=== PATIENT | female | born 1995 | race Caucasian/White ===

== ENCOUNTER 2020-02-03 23:22 | Emergency (ER) | payer OTHER ==
[~2020-02-03] VITALS: Ht 175.3 cm; Wt 111.4 kg
[2020-02-03 23:26] VITALS: TEMP 97.8
[2020-02-04 00:25] LABS: BASO # 0.1 (0.0-0.2); BASO % 0.7 % (0.0-2.0); EOS # 0.1 (0.0-0.7); EOS % 1.9 % (0-4.0); GRAN # 4.3 (1.4-6.5); GRAN % 61.3 % (42.2-75.2); HEMATOCRIT 43.4 % (37.0-47.0); HEMOGLOBIN 14.2 g/dl (12.5-16.0); LYMPH # 1.9 (1.2-3.4); LYMPH % 27.1 % (20.0-51.0); MEAN CELL VOLUME 84 fl (80.0-100.0); MEAN CORPUSCULAR HEMOGLOBIN 28 pg (27.0-31.0); MEAN CORPUSCULAR HGB CONC 33 g/dl (33.0-37.0); MEAN PLATELET VOLUME 10.6 fl (7.4-10.4); MONO # 0.6 (0.1-0.6); MONO % 8.9 % (1.7-9.3); PLATELET COUNT 329 K/mm3 (130-400); RED BLOOD COUNT 5.16 M/mm3 (4.10-5.30); REDCELL DISTRIBUTION WIDTH-CV 13.5 % (11.5-14.5)
[2020-02-04 01:15] LABS: ALBUMIN 4.4 gm/dL (3.5-5.0); BILIRUBIN,TOTAL 0.3 mg/dL (0.0-1.0); C-REACTIVE PROTEIN 4.5 mg/dL (0.0-0.9); CALCIUM 9.1 mg/dL (8.4-10.2); CREATININE, serum 0.64 (0.52-1.25); POTASSIUM 3.5 mmol/L (3.4-5.0); TOTAL PROTEIN 8.1 gm/dL (6.4-8.2)
[2020-02-04 01:22] LABS: COLLECTION METHOD CLEAN CATCH
[2020-02-04 01:37] LABS: MUCOUS Present /lpf; PH 6 (5-8); URINE APPEARANCE Hazy; URINE BACTERIA None Seen /hpf; URINE BILIRUBIN Negative (NEGATIVE); URINE BLOOD 3+ (NEGATIVE); URINE COLOR Yellow; URINE GLUCOSE Negative (NEGATIVE); URINE KETONE Trace (NEGATIVE); URINE LEUKOCYTE ESTERASE Negative (NEGATIVE); URINE NITRATE Negative (NEGATIVE); URINE PROTEIN(semi-quant) Negative (NEGATIVE); URINE UROBILINOGEN Negative (NEGATIVE)
[2020-02-04] MEDS ORDERED: CARAFATE S1 GM/10 ML PO (02:41)
[2020-02-04 03:12] VITALS: BP 126/70; PULSE 77
== END 2020-02-04 03:13 | disposition home or self-care (01) ==
LOC: COL.ER 23:22
PROVIDERS: Physician Assistant
DX: K20.8 Other esophagitis (principal)
CPT/HCPCS: J2060; J2405; J7030; Q9967

== ENCOUNTER 2020-02-14 06:00 | Day surgery (SDC) | payer OTHER ==
[~2020-02-14] VITALS: Ht 175.3 cm; Wt 110.0 kg
[~2020-02-14 06:00] MED LIST: CARAFATE S1 GM/10 ML PO
[2020-02-14] MEDS ORDERED: ZOLOFT 100MG100 MG PO (06:24)
[2020-02-14] MEDS ORDERED: PRILOTC PO (06:25)
[2020-02-14] MEDS ORDERED: ZYRTEC 10MG10 MG PO (06:26)
[2020-02-14 06:45] VITALS: BP 118/84; PULSE 69; TEMP 98.4
[2020-02-14 07:25] VITALS: BP 129/72; PULSE 64
--- NOTE | 2020-02-14 07:25 | NUR ---
Patient returns to bay 4 per cart and transfers from cart to recliner. Awake and alert. IV fluids infusing. Temp 97.5 and room air sats 95%. States that her throat feels numb.
--- NOTE | 2020-02-14 07:36 | NUR ---
Dr. Chandler here and talks with the patient and mother via phone.
[2020-02-14 07:40] VITALS: BP 123/74; PULSE 61
--- NOTE | 2020-02-14 07:40 | NUR ---
Patient sipping on water and denies difficulty swallowing.
--- NOTE | 2020-02-14 07:51 | NUR ---
Lab drawn as ordered. Continues to sip on water.
[2020-02-14 07:55] VITALS: BP 121/78; PULSE 64
--- NOTE | 2020-02-14 07:55 | NUR ---
Continues to sip on water without difficulty.
--- NOTE | 2020-02-14 08:00 | NUR ---
Offered snack and declines. States that she is not hungry. Tolerated glass of water. IV discontinued and patient dresses self.
--- NOTE | 2020-02-14 08:13 | NUR ---
Given dismissal instructions and voices understanding of these. Provided handouts and copy of instructions.
--- NOTE | 2020-02-14 08:16 | NUR ---
Patient dismissed to home driven by mother and taken to the front door per wheelchair and assisted into car by this RN with instructions in hand.
== END 2020-02-14 08:16 | disposition home or self-care (01) ==
LOC: SDCO 06:00
DX: K21.9 Gastro-esophageal reflux disease without esophagitis (principal); K31.84 Gastroparesis; K29.50 Unspecified chronic gastritis without bleeding
CPT/HCPCS: J2250; J3010; J7030

== ENCOUNTER → 2020-03-22 | Outpatient (CLI) | payer OTHER ==
[~2020-03-22] MED LIST changes: +PRILOTC PO; +ZOLOFT 100MG100 MG PO; +ZYRTEC 10MG10 MG PO
== END ==
LOC: COL.RAD 11:35
DX: R10.11 Right upper quadrant pain (principal)

== ENCOUNTER → 2020-04-05 | Outpatient (CLI) | payer OTHER | LOC: COL.RAD 08:47 | DX: G24.9 Dystonia, unspecified (principal); K81.1 Chronic cholecystitis | CPT/HCPCS: A9537; J2805 ==

== ENCOUNTER 2020-09-10 10:33 | Day surgery (SDC) | payer OTHER ==
[~2020-09-10] VITALS: Ht 175.3 cm; Wt 113.1 kg
[2020-09-10 11:14] VITALS: BP 137/78; PULSE 68; TEMP 97.9
[2020-09-10] MEDS ORDERED: CARAFATE 1GM1 G PO (11:24)
--- NOTE | 2020-09-10 11:27 | NUR ---
TO RM 3 AT 1042- CALL LIGHT IN REACH
[2020-09-10] MEDS ORDERED: NORCO 325 MG-51 TAB PO (13:49)
[2020-09-10 14:20] VITALS: BP 117/57; PULSE 67; TEMP 97.7
--- NOTE | 2020-09-10 14:20 | NUR ---
Pt to [facility] bay 3 via cart from PACU. Pt awake and alert. Pt denies pain at this time. Pt c/o "just a little" nausea. Water given per pt request. Bandaids to abdomen x4 are clean, dry, and intact. Will continue to monitor. Call light within reach.
[2020-09-10 14:35] VITALS: BP 106/60; PULSE 62
--- NOTE | 2020-09-10 14:35 | NUR ---
Pt continues to rest. Crackers given per request. Will continue to monitor. Call light within reach.
[2020-09-10 14:50] VITALS: BP 114/66; PULSE 66
--- NOTE | 2020-09-10 14:50 | NUR ---
Pt tolerating po food and fluids without difficulties. Pt denies needs at this time. Call light within reach.
[2020-09-10 15:05] VITALS: BP 110/58; PULSE 51
--- NOTE | 2020-09-10 15:05 | NUR ---
Pt up to restroom with stand by assist. Pt unable to void. Pt back to bed. Pt wanting to rest. Will continue to monitor. Call light within reach.
[2020-09-10] MEDS ORDERED: ZOFRAN 4MG T4 MG/TAB PO (15:08)
[2020-09-10 15:35] VITALS: BP 106/70; PULSE 51
--- NOTE | 2020-09-10 15:35 | NUR ---
PATIENT STATED SHE FELT GOOD AND WANTED TO GO HOME DR YANG CALLED AND OK'D FOR DISCHARGE WITHOUT VOIDING.
--- NOTE | 2020-09-10 15:50 | NUR ---
RECEIVED DISCHARGE INSTRUCTIONS AND VERBALIZED UNDERSTANDING. DISCONTINUED IV AND INT- CATHETER INTACT. PATIENT CALLED MOM FOR RIDE. GETTING DRESSED.
--- NOTE | 2020-09-10 16:24 | NUR ---
DISCHARGED PER WC BY NURSING STAFF TO PRIVATE CAR IN CARE OF MOTHER.
== END 2020-09-10 16:28 | disposition home or self-care (01) ==
LOC: SDCO 10:33
DX: K81.1 Chronic cholecystitis (principal); K21.00 Gastro-esophageal reflux disease with esophagitis, without bleeding; J45.909 Unspecified asthma, uncomplicated; F41.8 Other specified anxiety disorders; K31.84 Gastroparesis; E66.9 Obesity, unspecified; Z79.899 Other long term (current) drug therapy; Z80.42 Family history of malignant neoplasm of prostate; Z86.19 Personal history of other infectious and parasitic diseases
CPT/HCPCS: J0690; J1100; J1885; J2250; J2405; J2704; J3010; J7120